=== PATIENT | female | born 1930 | race Caucasian/White ===

== ENCOUNTER 2016-05-23 10:15 | Inpatient (IN) | payer MEDICARE, OTHER ==
[2016-05-23] MEDS ORDERED: 0.9 % SODIUM CHLORIDE 1,000 ML IV ONE (10:22)
[2016-05-23 10:32] LABS: BASOPHILS % 0.7 (0.0-1.5); EOSINOPHILS % 3.4 % (0.0-6.8); MEAN CORPUSCULAR VOLUME 94.9 fl (80.0-100.0); MONOCYTES % 4.9 % (0.0-11.0); NEUTROPHILS # 4.8 # k/uL (1.4-7.7)
[2016-05-23 11:14] LABS: eGFR (African) > 60; eGFR (Non-African) > 60
--- NOTE | 2016-05-23 11:57 | ED Physician Documentation ---
Fall - HISTORIAN Historian: patient - HPI Stated Complaint: High Blood Pressure Chief Complaint: Fall Onset: yesterday Where: other ([facility]) Context: lost balance r: moderate Associated Symptoms:: no loss of consciousness Location of Pain/Injury: head, face Injury to Right Extremity: none Injury to Left Extremity: none Further Comments: yes (85 year old female patient sent in from [facility] for evaluation of BP. Patient fell at 1900 yesterday and struck head and face on the wall. Patient denies any LOC. States she lost her balance. Patient is a resident of [facility] assisted living.) - ROS CONST: weakness (generalized) - PAST HX Past History: diabetes Type 2 (Spinal stenosis, OA both knees, HTN, hypothyroidism, depression) Allergies/Adverse Reactions: Allergies Allergy/AdvReac Type Severity Reaction Status Date / Time Sulfa (Sulfonamide Allergy Severe Mouth Verified 05/23/16 10:50 Antibiotics) Swelling procaine HCl [From Novocain] Allergy Intermediate Verified 05/23/16 10:50 Home Medications: Ambulatory Orders Medication Instructions Recorded Acetaminophen [Tylenol Extra 500 mg PO Q6H PRN 12/14/13 Strength] Atorvastatin Calcium [Lipitor] 20 mg PO HS 05/02/15 CloNIDine HCL [Catapress] 0.1 mg PO BID 05/02/15 Fluticasone Propionate [Flonase] 1 spray NS D 05/02/15 Furosemide [Lasix] 20 mg PO DAILY 05/02/15 Gabapentin 300 mg PO HS 05/02/15 Metoprolol Tartrate [Lopressor] 50 mg PO BID 05/02/15 Potassium Chloride [Klor-Con M20] 20 meq PO DAILY 05/02/15 amLODIPine BESYLATE [Norvasc] 5 mg PO 0900 05/02/15 Insulin Glargine,Hum.rec.anlog 20 unit SQ HS 05/14/15 [Lantus Solostar] Insulin Lispro [Humalog] 5 - 6 unit SQ BRKFST 06/03/15 Insulin Lispro [Humalog] 9 units SQ 1200 06/03/15 Insulin Lispro [Humalog] 10 units SQ 1800 06/03/15 Esomeprazole Magnesium [Nexium] 40 mg PO DAILY 01/20/16 Guaifenesin [Guaifenesin ER] 600 mg PO BID 01/20/16 Lactobacillus Acidophilus 1 each PO BID 01/20/16 [Acidophilus] Nabumetone [Relafen] 750 mg PO BID 01/20/16 Polyethylene Glycol 3350 [Miralax] 17 gm PO 1100 01/20/16 Lisinopril [Zestril] 10 mg PO DAILY 05/23/16 - SOCIAL HX Smoking History: non-smoker - FAMILY HX Family History: denies: none - VITAL SIGNS Vital Signs: Vital Signs Temp Pulse Resp BP Pulse Ox 97.1 F L 40 L 16 166/74 90 L 05/23/16 10:15 05/23/16 10:22 05/23/16 10:15 05/23/16 10:15 05/23/16 10:22 - REVIEWED ASSESSMENTS Nursing Assessment Reviewed: Yes Vitals Reviewed: Yes Progress - Progress Progress: lab and CT reviewed, recommend admission for monitoring of bradycardia and hypertension. Call to Dr Wall, patient accepted for admission. Patient up to bedside commode , c/o left rib pain. ED Results Lab/Radiology - Lab Results Lab Results: Lab Results 05/23/16 05/23/16 10:30 10:30 WBC 6.40 K/ul K/ul (4.00-12.00) RBC 5.02 M/ul M/ul (3.90-5.20) Hgb 15.1 g/dL g/dL (12.0-16.0) Hct 47.6 % H % (34.5-46.5) MCV 94.9 fl fl (80.0-100.0) MCH 30.0 pg pg (28.0-34.0) MCHC 31.6 g/dL g/dL (30.0-36.0) RDW 14.1 % % (11.3-14.3) Plt Count 150 K/mm3 K/mm3 (130-400) Neut % (Auto) 75.1 % % (39.0-79.0) Lymph % (Auto) 15.0 % L % (16.0-50.0) Mcpherson % (Auto) 4.9 % % (0.0-11.0) Eos % (Auto) 3.4 % % (0.0-6.8) Baso % (Auto) 0.7 (0.0-1.5) Neut # 4.8 # k/uL # k/uL (1.4-7.7) Lymph # 1.0 # k/uL # k/uL (0.6-4.0) Mcpherson # 0.3 # k/uL # k/uL (0.0-0.9) Eos # 0.2 # k/uL # k/uL (0.0-0.6) Baso # 0.0 # k/uL # k/uL (0.0-0.5) Reactive Lymphs % 0.9 % % (0.0-5.0) Reactive Lymphs # 0.1 # k/uL # k/uL (0.0-0.8) Sodium 143 mmol/L mmol/L (136-145) Potassium 3.7 mmol/L mmol/L (3.5-5.0) Chloride 103 mmol/L mmol/L (98-110) Carbon Dioxide 37 mmol/L H mmol/L (20-32) BUN 17 mg/dL mg/dL (10-26) Creatinine 0.9 mg/dL mg/dL (0.4-1.5) Estimated Creat Clear 87 Est GFR ( Amer) > 60 (60 - ) Est GFR (Non-Af Amer) > 60 (60 - ) Glucose 252 mg/dL H mg/dL (70-99) Calcium 9.9 mg/dL mg/dL (8.5-10.5) Total Bilirubin 0.5 mg/dL mg/dL (0.2-1.2) AST 23 U/L U/L (0-41) ALT 15 U/L U/L (0-45) Alkaline Phosphatase 65 U/L U/L (46-116) Creatine Kinase 101 U/L U/L (0-225) Total Protein 6.5 g/dL g/dL (6.0-8.5) Albumin 4.2 g/dL g/dL (3.0-5.5) - Orders Orders: ED Orders Category Date Time Status Continuous EKG monitoring Q30M Care 05/23/16 10:22 Active Continuous Pulse Oximetry Q30M Care 05/23/16 10:[address] Saline Lock/IV NOW Care 05/23/16 10:[address] BRAIN W/O CONTRAST Stat Exams 05/23/16 Taken CBC/PLATELET/DIFF Stat Lab 04/05/17 10:30 Completed CMP Stat Lab 05/23/16 10:30 Completed CREATINE KINASE Stat Lab 05/23/16 10:30 Completed UA W/MICRO IF INDICATED Stat Lab 05/23/16 10:22 Ordered 0.9 % Sodium Chloride [Normal Saline] 1,000 ml Med 05/23/16 10:22 Discontinued IV NOW Oxygen Daily Oxygen 05/23/16 10:30 Ordered EKG WITH COMPARISON Stat Ther 05/23/16 10:22 Ordered Fall Physical Exam - Physical Exam General Appearance: alert, mild distress Head: raccoon eyes Neck: non-tender, painless ROM, trachea midline Eye: ORA, EOMI, lids & conjunct. nml ENT: nml external inspection, no dental injury, no oral injury, airway nml Resp/CVS: no ecchymosis, breath sounds nml, no resp. distress, heart sounds nml , other (left rib pain; bradycardia on monitor 45-52) Abdomen: soft, no organomegaly, normal bowel sounds, no abdominal bruit, no distension Neuro: oriented x3, sensation nml, mood/affect nml, other (no neuro deficit noted. ) Skin: pallor Extremities: atraumatic, pelvis stable, hips non-tender, no pedal edema, nml ROM , nml color/temp - Artis Coma Score Eyes Open: Spontaneous Speech: Oriented Motor: Obeys Commands Discharge Clincal Impression: Bradycardia Fall Qualifiers: Encounter type: initial encounter Qualified Code(s): W19.XXXA - Unspecified fall, initial encounter Hypertension Qualifiers: Hypertension type: essential hypertension Qualified Code(s): I10 - Essential ( primary) hypertension Home Medications: Ambulatory Orders Acetaminophen [Tylenol Extra Strength] 500 mg PO Q6H PRN 12/14/13 Atorvastatin Calcium [Lipitor] 20 mg PO HS 05/02/15 CloNIDine HCL [Catapress] 0.1 mg PO BID 05/02/15 Fluticasone Propionate [Flonase] 1 spray NS D 05/02/15 Furosemide [Lasix] 20 mg PO DAILY 05/02/15 Gabapentin 300 mg PO HS 05/02/15 Metoprolol Tartrate [Lopressor] 50 mg PO BID 05/02/15 Potassium Chloride [Klor-Con M20] 20 meq PO DAILY 05/02/15 amLODIPine BESYLATE [Norvasc] 5 mg PO 0900 05/02/15 Insulin Glargine,Hum.rec.anlog [Lantus Solostar] 20 unit SQ HS 05/14/15 Insulin Lispro [Humalog] 5 - 6 unit SQ BRKFST 06/03/15 Insulin Lispro [Humalog] 9 units SQ 1200 06/03/15 Insulin Lispro [Humalog] 10 units SQ 1800 06/03/15 Esomeprazole Magnesium [Nexium] 40 mg PO DAILY 01/20/16 Guaifenesin [Guaifenesin ER] 600 mg PO BID 01/20/16 Lactobacillus Acidophilus [Acidophilus] 1 each PO BID 01/20/16 Nabumetone [Relafen] 750 mg PO BID 01/20/16 Polyethylene Glycol 3350 [Miralax] 17 gm PO 1100 01/20/16 Lisinopril [Zestril] 10 mg PO DAILY 05/23/16 Condition: Stable Disposition: 01 HOME, SELF-CARE Decision to Admit: NO Decision Time: 12:34
--- NOTE | 2016-05-23 15:37 | Diagnostic Imaging Report ---
NAT MILLER (LEXIS) - ER [facility] [address] [facility].[address] [address] Report Submission Date: May 23, 2016 11:43:06 AM CDT Patient Study Name: CADENCE ROMERO Date: May 23, 2016 10:37:31 AM CDT Modality Type: CT\SR Gender: F Description: CT BRAIN W/O CONTRAST : 34 Institution: [facility] Physician: NAT MILLER (LEXIS) - ER Computed tomography of the head without contrast HISTORY: Fall and altered mental status FINDINGS: Transverse brain sections are obtained without contrast revealing mild cerebellar and moderate cerebral atrophy. Old right internal capsule and left caudate lacunar infarcts are present. Extensive chronic small vessel ischemic gliosis is observed in cerebral white matter. Stout-white differentiation is intact. There is no intracranial hemorrhage or skull lesion. IMPRESSION: Brain atrophy and chronic small vessel ischemic changes without acute abnormality. Electronically signed on May 23, 2016 11:43:06 AM CDT by: Frank RODRIGUEZ
--- NOTE | 2016-05-23 15:38 | Diagnostic Imaging Report ---
NAT MILLER (LEXIS) - ER [facility] [address] [facility] [address] Report Submission Date: May 23, 2016 1:35:02 PM CDT Patient Study Name: CADENCE ROMERO Date: May 23, 2016 12:31:22 PM CDT Modality Type: CR Gender: F Description: CHEST : 34 Institution: [facility] Physician: NAT MILLER) - ER Chest ap and left ribs total 3 views Clinical history: Chest pain after history of fall Cardiomegaly with arteriosclerosis of the thoracic aorta. Left lung base discoid atelectasis. No pneumothorax or large consultation. There is a fracture of the anterior end of the left 10th rib, 6th rib and 5th rib. No pneumothorax . Impression: Fracture of the anterior and of the left 5th , 6th and 10th ribs . Cardiomegaly with atherosclerotic thoracic aorta Left lung base discoid atelectasis without pneumothorax Electronically signed on May 23, 2016 1:35:02 PM CDT by: Lloyd RODRIGUEZ
[2016-05-23 17:35] LABS: APPEARANCE,URINE Clear (CLEAR); COLOR,URINE Yellow (YELLOW); OCCULT BLOOD,URINE Negative (NEGATIVE); PH URINE 5.5 (5.0 - 8.0); UROBILINOGEN URINE 0.2 Eu (0.2-1.0)
[2016-05-23] MEDS ORDERED: ATORVASTATIN CALCIUM 80 MG TABLET PO ONE (17:35)
[2016-05-23 17:41] LABS: AMORPHOUS SEDIMENT,UR FEW (NEGATIVE)
[2016-05-23] MEDS: INSULIN LISPRO 100 UNIT/ML 3ML VIAL SQ SCH (17:53)
[2016-05-23 18:03] VITALS: BMI 34.4
--- NOTE | 2016-05-23 18:03 | History and Physical Report ---
History of Present Illnes - Health Maintenance Resuscitation Status: Resusciation Status Resuscitation Status Do Not Resuscitate <NAT MILLER - Last Filed: 05/23/16 20:33> - History of Present Illness History of Present Illness: 85yo white female who fell last noc, lost her balance and hit her forehead and her knees. No LOC noted. No headache noted. Kness are aching some. Patient was noted seen in the ED for her high blood pressure. Patient has had problems with hypertension in the past. BP this AM was 200/99. Patient appeared to be asymptomatic. In the ED was note to have some bradycardia Has ahd some bradycardia in the past. Normal pulse is in the 50s. Has had several orthostatic lightheadedness/dizzy spells when getting up. Admitted to the hospital for further evaluation and treatment. 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: Peripheral neuropathy Gastrointestinal: Constipation Psych: Depression Musculoskeletal: Osteoarthritis (knees), Other (spinal stenosis) ENT: Allergic rhinitis Renal/: Other (bladder spasms) Endocrine: Diabetes (type 2), Hypothyroidism - Past Surgical History Past Surgical History: Appendectomy, Cataract Removal, Hysterectomy, Total Hip Replacement (right), Total Knee Replacement (bilateral), Other (corneal transplant OU, nerve stimulator implantation, lumpectomy left) - Past Family History Mother Family History: CVA, (64yo) Father Family History: (64yo, AAA) Sister 1 Family History: Cancer (CML), Other (low blood pressure) - Past Social History Smoke: No 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 Alcohol: None Drugs: None Lives: Group Home (Long-Term Home) Domestic Violence: Negative - Health Maintenance Health Maintenance: Influenza Vaccine, Pneumococcal Vaccine, Mammogram (within last year), DEXA (several years ago) Influenza Vaccine: Current for this Influenza Season Pneumonia Vaccine: Yes Resuscitation Status: Resusciation Status Resuscitation Status Do Not Resuscitate - Unable to Obtain History Unable to Obtain: Yes <Lloyd Wall - Last Filed: 05/31/16 08:11> Review of Systems - Medications/Allergies Current Inpatient Medications: Current Inpatient Medications Aspirin (Ecotrin) 81 mg PO DAILY [facility] Calcium/Vitamin D (Caltrate With Vit D-3) 1 each PO DAILY [facility] Clonidine HCl (Catapress) 0.1 mg PO BID [facility] Last Admin: 05/23/16 20:30 Dose: 0.1 mg Enoxaparin Sodium (Lovenox) 30 mg SQ QD [facility] Stop: 06/05/16 19:01 Last Admin: 05/23/16 18:49 Dose: 30 mg Fluticasone Propionate (Flonase Nasal Industry) 1 spray NS DAILY [facility] Furosemide (Lasix) 20 mg PO DAILY [facility] Gabapentin (Neurontin) 300 mg PO HS [facility] Last Admin: 05/23/16 20:32 Dose: 300 mg Guaifenesin (Mucinex) 600 mg PO BID [facility] Last Admin: 05/23/16 20:31 Dose: 600 mg Insulin Detemir (Levemir Flex-Pen) 20 unit SQ HS [facility] Insulin Human Lispro (Humalog) 5 unit SQ BRKFST [facility] Insulin Human Lispro (Humalog) 9 unit SQ 1200 [facility] Insulin Human Lispro (Humalog) 10 unit SQ 1800 [facility] Last Admin: 05/23/16 17:53 Dose: 10 units Levothyroxine Sodium (Synthroid) 125 mcg PO 0700 [facility] Levothyroxine Sodium (Synthroid) 25 mcg PO 0700 [facility] Lisinopril (Prinivil) 20 mg PO DAILY [facility] Miscellaneous (Chem Sticks) 1 each MC CHEMQID [facility] Last Admin: 05/23/16 20:31 Dose: 1 each Multivitamins (Tab-A-Clare) 1 each PO DAILY [facility] Naproxen (Naprosyn) 375 mg PO BID [facility] Last Admin: 05/23/16 20:31 Dose: 375 mg Pantoprazole Sodium (Protonix) 40 mg PO 0700 [facility] Polyethylene Glycol (Miralax) 17 gm PEG 1100 [facility] Potassium Chloride (Klor-Con M20) 20 meq PO DAILY [facility] Sertraline HCl (Zoloft) 100 mg PO DAILY [facility] Sodium Chloride (Normal Saline Flush) 3 ml IV BID [facility] Last Admin: 05/23/16 20:32 Dose: 3 ml <PAUL,NAT C - Last Filed: 05/23/16 20:33> - Review of Systems Constitutional: negative: Fever, Chills ENT: Other (decrease hearing) Respiratory: SOB with Excertion. negative: Cough, Dry, Shortness of Breath, Wheezing, Deferred Cardiovascular: negative: Chest Pain, Palpitations, Edema Gastrointestinal: negative: Nausea, Vomiting, Abdominal Pain, Diarrhea, Melena, Hematochezia Genitourinary: negative: Dysuria, Frequency, Incontinence Musculoskeletal: Leg Pain. negative: Neck Pain Skin: negative: Rash - Medications/Allergies Current Inpatient Medications: Current Inpatient Medications Aspirin (Ecotrin) 81 mg PO DAILY [facility] Atorvastatin Calcium (Lipitor) 20 mg PO HS [facility] Calcium/Vitamin D (Caltrate With Vit D-3) 1 each PO DAILY [facility] Clonidine HCl (Catapress) 0.1 mg PO BID [facility] Fluticasone Propionate (Flonase Nasal Industry) 1 spray NS DAILY [facility] Furosemide (Lasix) 20 mg PO DAILY [facility] Gabapentin (Neurontin) 300 mg PO HS [facility] Guaifenesin (Mucinex) 600 mg PO BID [facility] Insulin Detemir (Levemir Flex-Pen) 20 unit SQ HS [facility] Insulin Human Lispro (Humalog) 5 unit SQ BRKFST [facility] Insulin Human Lispro (Humalog) 9 unit SQ 1200 [facility] Insulin Human Lispro (Humalog) 10 unit SQ 1800 [facility] Last Admin: 05/23/16 17:53 Dose: 10 units Levothyroxine Sodium (Synthroid) 125 mcg PO 0700 [facility] Levothyroxine Sodium (Synthroid) 25 mcg PO 0700 [facility] Lisinopril (Prinivil) 20 mg PO DAILY [facility] Miscellaneous (Nabumetone [Relafen]) 750 mg PO BID [facility] Miscellaneous (Chem Sticks) 1 each CHEMQID [facility] Multivitamins (Tab-A-Clare) 1 each PO DAILY [facility] Pantoprazole Sodium (Protonix) 40 mg PO 0700 [facility] Polyethylene Glycol (Miralax) 17 gm PEG 1100 [facility] Potassium Chloride (Klor-Con M20) 20 meq PO DAILY [facility] Sertraline HCl (Zoloft) 100 mg PO DAILY [facility] Sodium Chloride (Normal Saline Flush) 3 ml IV BID [facility] <Lloyd Wall - Last Filed: 05/31/16 08:11> - Medications/Allergies Allergies/Adverse Reactions: Allergies Allergy/AdvReac Type Severity Reaction Status Date / Time Sulfa (Sulfonamide Allergy Severe Mouth Verified 05/23/16 10:50 Antibiotics) Swelling procaine HCl [From Novocain] Allergy Intermediate Verified 05/23/16 10:50 Home Medications: Home Medications Lisinopril [Zestril] 10 mg PO DAILY 05/23/16 Exam - Exam Vital Signs: Vital Signs (72 hours) 05/23/16 05/23/16 05/23/16 13:00 13:22 13:30 Temperature 97.3 F L Pulse Rate 56 L 56 L Pulse Rate [ 52 L Pulse ox] Respiratory 17 Rate Blood Pressure 187/56 [Right Arm] O2 Sat by Pulse 99 Oximetry 05/23/16 05/23/16 05/23/16 14:00 15:00 15:30 Temperature 97.3 F L Pulse Rate 68 Pulse Rate [ 52 L Pulse ox] Respiratory 17 Rate Blood Pressure 187/56 [Right Arm] O2 Sat by Pulse 99 99 Oximetry 05/23/16 05/23/16 05/23/16 17:30 18:00 19:00 Temperature 98.9 F Pulse Rate 63 Pulse Rate [ 56 L Pulse ox] Respiratory 17 Rate Blood Pressure 184/88 [Right Arm] O2 Sat by Pulse 99 92 Oximetry - Laboratory Results Laboratory Results: Laboratory Results 05/23/16 17:30 Urine Color Yellow Urine Appearance Clear Urine pH 5.5 Ur Specific [place] 1.020 Urine Protein Negative Urine Ketones Negative Urine Occult Blood Negative Urine Nitrite Positive Urine Bilirubin Negative Urine Urobilinogen 0.2 Ur Leukocyte Esterase Trace Urine RBC 0-2 Urine WBC 2-5 Ur Squamous Epith Cells Few Amorphous Sediment Few H Urine Bacteria Moderate H Urine Glucose Negative <NAT MILLER - Last Filed: 05/23/16 20:33> - Exam Vital Signs: Vital Signs (72 hours) 05/23/16 05/23/16 13:00 13:22 Temperature 97.3 F L Pulse Rate 56 L Pulse Rate [ 52 L Pulse ox] Respiratory 17 Rate Blood Pressure 187/56 [Right Arm] O2 Sat by Pulse 99 Oximetry - Laboratory Results Laboratory Results: Laboratory Results 05/23/16 17:30 Urine Color Yellow Urine Appearance Clear Urine pH 5.5 Ur Specific [place] 1.020 Urine Protein Negative Urine Ketones Negative Urine Occult Blood Negative Urine Nitrite Positive Urine Bilirubin Negative Urine Urobilinogen 0.2 Ur Leukocyte Esterase Trace Urine RBC 0-2 Urine WBC 2-5 Ur Squamous Epith Cells Few Amorphous Sediment Few H Urine Bacteria Moderate H Urine Glucose Negative <Lloyd Wall - Last Filed: 05/31/16 08:11> Assessment/Plan - Assessment/Plan (1) Bradycardia Status: Acute Assessment: Patient will be placed on telemetry. (2) Fall Status: Acute Qualifiers: Encounter type: initial encounter Qualified Code(s): W19.XXXA - Unspecified fall, initial encounter Assessment: stable (3) Hypertension Status: Acute Qualifiers: Hypertension type: essential hypertension Qualified Code(s): I10 - Essential (primary) hypertension Assessment: continue home meds and monitor (4) Contusion Status: Acute Qualifiers: Encounter type: initial encounter Contusion area: forearm Laterality: unspecified laterality Qualified Code(s): S50.10XA - Contusion of unspecified forearm, initial encounter Assessment: monitor, CT scan of head negative (5) Ribs, multiple fractures Status: Acute Assessment: fracture of the 5th, 6th and 10th. Plan: PRN pain med <Lloyd Wall - Last Filed: 05/31/16 08:11> VTE Assessment - RISK FACTOR SCORE VTE RISK FACTOR SCORES: AGE OVER 60 YEARS, LEG SWELLING, ULCERS, VARICOSE VEINS - RISK VTE MODERATE RISK: SCORE OF 2 (RISK PROXIMAL DVT 2-4%) PROPHYAXIS NEEDED <Lloyd Wall Filed: 05/31/16 08:11>
[2016-05-23] MEDS ORDERED: ENOXAPARIN SODIUM 30 MG/0.3 ML DISP.SYRIN SQ ONE (18:47)
[2016-05-23] MEDS ORDERED: ENOXAPARIN SODIUM 30 MG/0.3 ML DISP.SYRIN SQ SCH (19:00)
[2016-05-23] MEDS: CloNIDine HCL 0.1 MG TABLET PO SCH (20:30)
[2016-05-23] MEDS: NAPROXEN 250 MG TABLET PO SCH (20:31)
[2016-05-23] MEDS: SALINE FLUSH 10 ML DISP.SYRIN IV SCH (20:32)
[2016-05-23] MEDS ORDERED: GABAPENTIN 300 MG CAPSULE PO SCH (21:00)
[2016-05-23] MEDS ORDERED: NABUMETONE 750 MG PO SCH (21:00)
[2016-05-23] MEDS ORDERED: INSULIN DETEMIR 100 UNIT/ML 3ML PEN.INJCTR SQ SCH (21:00)
[2016-05-23] MEDS ORDERED: ATORVASTATIN CALCIUM 80 MG TABLET PO SCH (21:00)
[2016-05-24 06:41] LABS: BASOPHILS % 0.4 (0.0-1.5); MEAN CORPUSCULAR HEMOGLOBIN 30.4 pg (28.0-34.0); MEAN CORPUSCULAR VOLUME 95.6 fl (80.0-100.0); MONOCYTES % 5.3 % (0.0-11.0); NEUTROPHILS # 3.6 # k/uL (1.4-7.7)
[2016-05-24 06:54] LABS: eGFR (African) > 60; eGFR (Non-African) > 60
[2016-05-24] MEDS ORDERED: LEVOTHYROXINE SODIUM 25 MCG TABLET PO SCH (07:00)
[2016-05-24] MEDS ORDERED: LEVOTHYROXINE SODIUM 100 MCG TABLET PO SCH (07:00)
[2016-05-24] MEDS ORDERED: PANTOPRAZOLE SODIUM 40 MG TABLET PO SCH (07:00)
[2016-05-24] MEDS ORDERED: INSULIN LISPRO 100 UNIT/ML 3ML VIAL SQ SCH ×2 (08:00→12:00)
[2016-05-24] MEDS ORDERED: POTASSIUM CHLORIDE 20 MEQ TABLET.ER PO SCH (09:00)
[2016-05-24] MEDS ORDERED: FUROSEMIDE 20 MG TABLET PO SCH (09:00)
[2016-05-24] MEDS ORDERED: MULTIVITAMIN 1 EACH TABLET PO SCH (09:00)
[2016-05-24] MEDS ORDERED: FLUTICASONE PROPIONATE 120 SPRAY/16 GR BOTTLE NS SCH (09:00)
[2016-05-24] MEDS ORDERED: CALCIUM CARB 600MG/VIT D-3 400 1 EACH TABLET PO SCH (09:00)
[2016-05-24] MEDS ORDERED: LISINOPRIL 20 MG TABLET PO SCH (09:00)
[2016-05-24] MEDS ORDERED: SERTRALINE HCL 50 MG TABLET PO SCH (09:00)
[2016-05-24] MEDS ORDERED: ASPIRIN EC 81 MG TABLET.DR PO SCH (09:00)
[2016-05-24] MEDS: CloNIDine HCL 0.1 MG TABLET PO SCH (09:31)
[2016-05-24] MEDS: NAPROXEN 250 MG TABLET PO SCH (09:32)
[2016-05-24] MEDS: SALINE FLUSH 10 ML DISP.SYRIN IV SCH (09:38)
[2016-05-24] MEDS ORDERED: POLYETHYLENE GLYCOL 3350 17 GM POWD.PACK PEG SCH (11:00)
[2016-05-24 14:28] VITALS: BP 144/65
[2016-05-24] MEDS ORDERED: HYDROcodone /APAP 5/325 1 EACH TABLET PO PRN (15:48)
--- NOTE | 2016-05-24 16:38 | Diagnostic Imaging Report ---
[facility] [address] [facility].[address] [address] Report Submission Date: May 24, 2016 4:33:11 PM CDT Patient Study Name: CADENCE ROMERO Date: May 24, 2016 3:48:49 PM CDT Modality Type: CR Gender: F Description: SPINE : 34 Institution: [facility] Physician: SUNDAY GUSTAFSON/MED SURG Lumbar spine 3 views Clinical history: Severe low back pain with the history of fall Advance lumbar spondylosis with degenerative disc at L5/S1. Grade I anterior spondylolisthesis L4/L5. Degenerative disc at L2/L3 . An old compression fracture of L1 with 9% decrease in the height of L1 . Electric stimulant in the left side of the pelvis . No acute fractures . Impression: Severe lumbar spondylosis as described above with an old fracture of L1 without acute fractures or bone destruction Electronically signed on May 24, 2016 4:33:11 PM CDT by: Lloyd RODRIGUEZ
[2016-05-24] MEDS ORDERED: HYDROcodone /APAP 5/325 1 EACH TABLET ONE (16:54)
[2016-05-24] MEDS: INSULIN LISPRO 100 UNIT/ML 3ML VIAL SQ SCH (18:08)
[2016-05-25] MEDS ORDERED: LEVOTHYROXINE SODIUM 100 MCG TABLET PO SCH (07:00)
[2016-05-25] MEDS ORDERED: ENOXAPARIN SODIUM 30 MG/0.3 ML DISP.SYRIN SQ SCH (09:00)
--- NOTE | 2016-05-31 07:55 | Discharge Summary ---
Discharge Summary - Discharge Sumary History of Present Illness: 85yo white female who fell last noc, lost her balance and hit her forehead and her knees. No LOC noted. No headache noted. Kness are aching some. Patient was noted seen in the ED for her high blood pressure. Patient has had problems with hypertension in the past. BP this AM was 200/99. Patient appeared to be asymptomatic. In the ED was note to have some bradycardia Has ahd some bradycardia in the past. Normal pulse is in the 50s. Has had several orthostatic lightheadedness/dizzy spells when getting up. Admitted to the hospital for further evaluation and treatment. Condition at Discharge: Stable Home Medications: Ambulatory Orders Medication Instructions Recorded Acetaminophen [Tylenol Extra 500 mg PO Q6H PRN 12/14/13 Strength] Atorvastatin Calcium [Lipitor] 20 mg PO HS 05/02/15 CloNIDine HCL [Catapress] 0.1 mg PO BID 05/02/15 Fluticasone Propionate [Flonase] 1 spray NS D 05/02/15 Furosemide [Lasix] 20 mg PO DAILY 05/02/15 Gabapentin 300 mg PO HS 05/02/15 Potassium Chloride [Klor-Con M20] 20 meq PO DAILY 05/02/15 amLODIPine BESYLATE [Norvasc] 5 mg PO 0900 05/02/15 Insulin Glargine,Hum.rec.anlog 20 unit SQ HS 05/14/15 [Lantus Solostar] Insulin Lispro [Humalog] 5 - 6 unit SQ BRKFST 06/03/15 Insulin Lispro [Humalog] 9 units SQ 1200 06/03/15 Insulin Lispro [Humalog] 10 units SQ 1800 06/03/15 Esomeprazole Magnesium [Nexium] 40 mg PO DAILY 01/20/16 Guaifenesin [Guaifenesin ER] 600 mg PO BID 01/20/16 Lactobacillus Acidophilus 1 each PO BID 01/20/16 [Acidophilus] Nabumetone [Relafen] 750 mg PO BID 01/20/16 Polyethylene Glycol 3350 [Miralax] 17 gm PO 1100 01/20/16 Lisinopril [Zestril] 10 mg PO DAILY 05/23/16 HYDROcodone /APAP 5/325 [Taylor 1 each PO Q6 PRN #15 tablet 05/24/16 5/325] Consultations this Visit: None Procedures this Visit: None (review) Allergies/Adverse Reactions: Allergies Allergy/AdvReac Type Severity Reaction Status Date / Time Sulfa (Sulfonamide Allergy Severe Mouth Verified 05/23/16 10:50 Antibiotics) Swelling procaine HCl [From Novocain] Allergy Intermediate Verified 05/23/16 10:50 Discharge Summary: Patient was placed on library monitor. Patient did have episodes of bradycardia down into the 50s. Patient did have orthostatic blood pressure checked and remained stable. Patient is not having syncopal or near syncopal episodes. Blood pressure did improve and remained stable during the hospitalization. Patient did have a CT scan of the head which was normal. Patient's mentation and neurological function remained stable during the hospitalization. At the time of discharge patient was stable and was felt that she could be followed on an outpatient basis and was subsequently discharged home to [facility] in stable condition. - Final Diagnosis (1) Bradycardia Problems: improves some, pulse remained in the 50-60 most of the time
== END 2016-05-24 18:25 | disposition home or self-care (01) | DRG 310 ==
LOC: ED 10:15 → SOUTH 12:35
PROVIDERS: ADMIT Family Medicine; ATTEND Family Medicine
DX: R00.1 Bradycardia, unspecified (principal); W19.XXXA Unspecified fall, initial encounter; Y93.9 Activity, unspecified; Y99.9 Unspecified external cause status
CPT/HCPCS: 36415; 70450; 71101; 72100; 80053; 81002; 82550; 85025; 93005; 97116; 97161; 97165; 97530; 97535; 99284; A9270; J1650; J1815; J7030; 99223; 99238; S1016

== ENCOUNTER 2016-09-12 10:00 | Outpatient (CLI) | payer MEDICARE, OTHER | END 2016-09-12 10:02 | LOC: POD 10:00 | PROVIDERS: ATTEND Podiatrist Public Medicine | DX: B35.1 Tinea unguium (principal); E11.9 Type 2 diabetes mellitus without complications; L60.0 Ingrowing nail; M20.20 Hallux rigidus, unspecified foot; M79.674 Pain in right toe(s); M79.675 Pain in left toe(s); M79.672 Pain in left foot | CPT/HCPCS: 11721; G0463 ==

== ENCOUNTER 2017-03-14 09:08 | Emergency (ER) | payer MEDICARE, OTHER ==
--- NOTE | 2017-03-14 09:30 | ED Physician Documentation ---
GI Bleed - HISTORIAN Historian: patient - HPI Stated Complaint: nausea and vomiting Chief Complaint: Nausea,Vomiting,Diarrhea Additional Information: This is an 86 year old female resident at [facility] who has not felt well for the past 6 days. She has had some mild LLQ pain, but it is better now. She has not had a BM for several days, but does not have an urge to defecate. She has not had any fever or chills. She has had an appendectomy, as well as hysterectomy, but no previous bowel surgery. She has had several bouts of emesis, but it has been dark, but not bloody and not coffee ground. Onset: days ago (6) Timing: sudden onset, still present Severity: moderate Further Comments: no - Associated Symptoms Description of Stools: constipation. denies: dark stools Abdominal Pain: LLQ Emesis Description: other (dark, not coffee ground) Description of Rectal Bleed: denies: other Other Related Symptoms: nausea, vomiting, back pain (left flank pain) - ROS CONST: denies: fever, chills SKIN/LYMPH: denies: leg swelling, rash, ankle swelling CVS/RESP: denies: chest pain GI/: denies: other EYES/ENT: denies: problems with vision MS: none NEURO/PSYCH: denies: headache - PAST HX Past History: denies: GI bleeding, peptic ulcer, rectal fistula Other History: diabetes Type 2, hypertension Surgeries/Procedures: appendectomy, hysterectomy Immunizations: tetanus, pneumovax Allergies/Adverse Reactions: Allergies Allergy/AdvReac Type Severity Reaction Status Date / Time Sulfa (Sulfonamide Allergy Severe Mouth Verified 03/14/17 11:08 Antibiotics) Swelling procaine HCl [From Novocain] Allergy Intermediate Verified 03/14/17 11:08 Home Medications: Ambulatory Orders Medication Instructions Recorded Atorvastatin Calcium [Lipitor] 20 mg PO HS 05/02/15 CloNIDine HCL [Catapress] 0.1 mg PO BID 05/02/15 Fluticasone Propionate [Flonase] 1 spray NS D 05/02/15 Furosemide [Lasix] 20 mg PO DAILY 05/02/15 Gabapentin 300 mg PO HS 05/02/15 Potassium Chloride [Klor-Con M20] 20 meq PO DAILY 05/02/15 amLODIPine BESYLATE [Norvasc] 5 mg PO 0900 05/02/15 Insulin Glargine,Hum.rec.anlog 20 unit SQ HS 05/14/15 [Lantus Solostar] Insulin Lispro [Humalog] 5 - 6 unit SQ BRKFST 06/03/15 Insulin Lispro [Humalog] 9 units SQ 1200 06/03/15 Insulin Lispro [Humalog] 10 units SQ 1800 06/03/15 Esomeprazole Magnesium [Nexium] 40 mg PO DAILY 01/20/16 Guaifenesin [Guaifenesin ER] 600 mg PO BID 01/20/16 Lactobacillus Acidophilus 1 each PO BID 01/20/16 [Acidophilus] Nabumetone [Relafen] 750 mg PO BID 01/20/16 Polyethylene Glycol 3350 [Miralax] 17 gm PO 1100 01/20/16 Lisinopril [Zestril] 10 mg PO DAILY 05/23/16 Lidocaine HCl/Menthol 1 each TOP Q12 03/14/17 [Lidodextrapine 4%-1% Patch] - SOCIAL HX Smoking History: non-smoker Alcohol Use: none Drug Use: none - FAMILY HX Family History: none - VITAL SIGNS Vital Signs: Vital Signs Temp Pulse Resp BP Pulse Ox 84 20 210/107 91 L 03/14/17 09:08 03/14/17 09:08 03/14/17 09:08 03/14/17 09:08 ED Results Lab/Radiology - Lab Results Lab Results: Lab Results 03/14/17 03/14/17 03/14/17 09:45 09:45 09:45 WBC RBC Hgb Hct MCV MCH MCHC RDW Plt Count Sodium 145 mmol/L mmol/L (136-145) Potassium 3.8 mmol/L mmol/L (3.5-5.1) Chloride 98 mmol/L mmol/L (98-107) Carbon Dioxide 30 mmol/L mmol/L (22-30) BUN 34 mg/dL H mg/dL (7-17) Creatinine 0.90 mg/dL mg/dL (0.52-1.04) Estimated Creat Clear 82 Est GFR ( Amer) > 60 (60 - ) Est GFR (Non-Af Amer) > 60 (60 - ) Glucose 196 mg/dL H mg/dL (74-106) Calcium 9.9 mg/dL mg/dL (8.4-10.2) Total Bilirubin 1.0 mg/dL mg/dL (0.2-1.3) AST 30 U/L U/L (15-46) ALT 34 U/L U/L (13-69) Alkaline Phosphatase 64 U/L U/L (38-126) Troponin I < 0.03 ng/mL L ng/mL (0.03-0.06) Total Protein 6.4 g/dL g/dL (6.3-8.2) Albumin 3.8 g/dL g/dL (3.5-5.0) Lipase 57 U/L U/L (23-300) 03/14/17 09:45 WBC 10.30 K/ul K/ul (4.00-12.00) RBC 5.38 M/ul H M/ul (3.90-5.20) Hgb 16.3 g/dL H g/dL (12.0-16.0) Hct 49.2 % H % (34.5-46.5) MCV 91.5 fl fl (80.0-100.0) MCH 30.4 pg pg (28.0-34.0) MCHC 33.2 g/dL g/dL (30.0-36.0) RDW 14.4 % H % (11.3-14.3) Plt Count 171 K/mm3 K/mm3 (130-400) Sodium Potassium Chloride Carbon Dioxide BUN Creatinine Estimated Creat Clear Est GFR ( Amer) Est GFR (Non-Af Amer) Glucose Calcium Total Bilirubin AST ALT Alkaline Phosphatase Troponin I Total Protein Albumin Lipase - Radiology Radiology Impressions: XR shows SBO Follow up CT shows SBO and incarcerated inguinal hernia - Orders Orders: ED Orders Category Date Time Status ABDOMEN COMPLETE [RAD] Stat Exams 03/14/17 Completed CHEST 1 VIEW [RAD] Stat Exams 03/14/[address] ABDOMEN PELVIS C [CT ABD & PELVIS W/ CON] Stat Exams 03/14/17 Ordered CBC PLATELETS NO DIFF Routine Lab 03/14/17 09:45 Completed CMP Routine Lab 03/14/17 09:45 Completed LIPASE Urgent Lab 03/14/17 09:45 Completed TROPONIN I (cTnI) Stat Lab 03/14/17 09:45 Completed Labetalol HCl [Trandate] 40 mg Med 03/14/17 09:40 Discontinued 0.9 % Sodium Chloride [Sodium Chloride] 250 ml IV NOW Ondansetron HCl/Pf [Zofran 4 mg/2 ml] Med 03/14/17 09:44 Discontinued 4 mg .ROUTE .STK-MED ONE EKG WITH COMPARISON Stat Ther 03/14/17 Ordered Abdominal Pain Physical Exam - Physical Exam General Appearance: mild distress EENT: eye inspection normal, ENT inspection normal, dry mucous membranes, other (tongue is coated) NECK: normal inspection RESPIRATORY: no resp distress CVS: reg rate & rhythm, murmur ABDOMEN: soft, no organomegaly PELVIC EXAM: other (deferred) RECTAL: deferred BACK: normal inspection, CVA tenderness (L) SKIN: warm/dry EXTREMITIES: non-tender NEURO: oriented X3 Vital Signs: Vital Signs Temp Pulse Resp BP Pulse Ox 84 20 210/107 91 L 03/14/17 09:08 03/14/17 09:08 03/14/17 09:08 03/14/17 09:08 Discharge Clincal Impression: Incarcerated inguinal hernia Referrals: Lloyd Wall MD [Primary Care Provider] - 2 Days Condition: Fair Disposition: 02 XFER SHT-TRM HOSP Decision to Admit: NO Date of Decison to Admit: 03/14/17 Decision Time: 12:37
[2017-03-14 09:48] LABS: MEAN CORPUSCULAR HEMOGLOBIN 30.4 pg (28.0-34.0); MEAN CORPUSCULAR VOLUME 91.5 fl (80.0-100.0)
[2017-03-14] MEDS: LABETALOL HCL IV ONE (10:00)
[2017-03-14] MEDS: SODIUM CHLORIDE 0.9% IV ONE (10:00)
[2017-03-14] MEDS: ONDANSETRON HCL/PF 4 MG/ 2ML VIAL ONE (10:00)
[2017-03-14 10:05] LABS: eGFR (African) > 60; eGFR (Non-African) > 60
--- NOTE | 2017-03-14 11:12 | Diagnostic Imaging Report ---
KIRILL BROWNE [facility] [id number] [facility] [address] [address] Report Submission Date: Mar 14, 2017 10:57:20 AM CLUB ATTENDANT Patient Study Name: CADENCE ROMERO Date: Mar 14, 2017 10:32:47 AM CLUB ATTENDANT Modality Type: CR Gender: F Description: CHEST : 34 Institution: [facility] Physician: KIRILL BROWNE Examination: Portable chest History: Evaluate lungs Comparison exam: 23 May 2016 Findings: Single view of the chest demonstrates a mildly hypoventilated inspiratory effort resulting in mild prominence of the cardiac and mediastinal silhouette. Mild parenchymal haziness at the left lung base with obscuration of the left costophrenic margin. Osseous structures are appropriate for age. Impression: Left lung base infiltrate/effusion. Electronically signed on Mar 14, 2017 10:57:20 AM CLUB ATTENDANT by: Radhames RODRIGUEZ
--- NOTE | 2017-03-14 11:13 | Diagnostic Imaging Report ---
KIRILL BROWNE [facility] [address] [facility] [address] [place] [address]. [id number] Report Submission Date: Mar 14, 2017 11:00:12 AM BACKSIDE GRINDER Patient Study Name: CADENCE ROMERO Date: Mar 14, 2017 10:20:40 AM BACKSIDE GRINDER Modality Type: CR Gender: F Description: ABDOMEN : 34 Institution: [facility] Physician: KIRILL BROWNE Examination: Obstruction series History: Abdominal discomfort Findings: 3 views obtained of the abdomen. Numerous dilated loops of small bowel measuring up to 4.6 cm. No obvious free air under the diaphragm. Osteopenia, degenerative changes, and right hip replacement. Left lower pelvic stimulator. Impression: Bowel obstruction. Electronically signed on Mar 14, 2017 11:00:12 AM BACKSIDE GRINDER by: Radhames RODRIGUEZ
[2017-03-14 13:07] VITALS: BP 179/74
--- NOTE | 2017-03-14 14:57 | Diagnostic Imaging Report ---
KIRILL BROWNE [facility] [address] [facility] [address] [place], [place]. [address] Report Submission Date: Mar 14, 2017 11:55:26 AM ROVING WEIGHT GAUGER Patient Study Name: CADENCE ROMERO Date: Mar 14, 2017 11:20:48 AM ROVING WEIGHT GAUGER Modality Type: CT\SR Gender: F Description: CT ABD & PELVIS W/ CON : 34 Institution: [facility] Physician: KIRILL BROWNE Examination: CT Abdomen/pelvis History: Small bowel obstruction. Comparison exams: None available Technique: CT Abdomen/pelvis with IV protocol. Findings: Liver demonstrates diffuse low attenuation. No central lesion. Spleen , adrenals, pancreas, kidneys and gallbladder are without gross irregularity. No abnormal enhancement. No gallstone. No suspicious renal calcifications. Ureters do not appear to be dilated in their course through the abdomen and pelvis. Bladder margins not well visualized due to streak artifact from right hip prosthesis. Abdominal aorta demonstrates peripheral atherosclerotic disease. No aneurysm. Cardiac silhouette not enlarged. No pericardial effusion. Coronary vascular calcifications. Numerous loops of dilated small bowel with air-fluid levels within the mid abdomen. Left anterior abdominal wall hernia with loop of small bowel extending into the hernia - bowel distally does not appear to be dilated. Stool within the large bowel limiting sensitivity. No mesenteric inflammatory changes or free fluid. Appendix not visualized. Few sigmoid diverticula. Hiatal hernia. Osseous structures demonstrates degenerative changes. Significant anterior compression of the T10 and an L1 vertebral bodies. Lung bases demonstrate parenchymal scarring and atelectasis. No overt effusion. Impression: Small bowel high-grade obstruction. Lead point appears to be located at a left lower anterior abdominal wall hernia with small bowel involvement. Surgical consultation recommended. No evidence for acute upper abdominal organ inflammatory process. Large hiatal hernia. Sigmoid diverticulosis. No evidence for acute diverticulitis. No gallstone. No suspicious renal calcifications or abnormal ureteric dilation. Lumbar degenerative is an compression deformities as described. Discussed findings with Dr. Browne at 1154 hours on 14 March 2017 CDT Electronically signed on Mar 14, 2017 11:55:26 AM ROVING WEIGHT GAUGER by: Radhames RODRIGUEZ
== END 2017-03-14 13:05 | disposition short-term general hospital (02) ==
LOC: ED 09:08
DX: K40.30 Unilateral inguinal hernia, with obstruction, without gangrene, not specified as recurrent (principal); R11.2 Nausea with vomiting, unspecified
CPT/HCPCS: 71010; 74020; 74177; 80053; 83690; 84484; 85027; 96365; 96375; 99283; J2405; J3490; J7050; Q9967